=== PATIENT | female | born 1970 | race Caucasian/White ===

== ENCOUNTER 2018-08-11 07:02 | Inpatient (IN) ==
[2018-08-11] MEDS ORDERED: Metoprolol Tartrate 25 MG Tablet PO ONE (09:30)
[2018-08-11] MEDS ORDERED: Chlorhexidine Gluconate 2% 1 Pack (2 Cloths) TOPICAL ONE (09:30)
[2018-08-11] MEDS ORDERED: ceFAZolin 2 GM Premix Inj 2 GM/50 ML PIGGYBACK IV.SIG ONE (09:31)
[2018-08-11] MEDS ORDERED: ceFAZolin 2 GM Premix Inj 2 GM/50 ML PIGGYBACK IV.SIG SCH (10:00)
[2018-08-11] MEDS ORDERED: Sodium Chlor 0.9% Inj 500 ML IV.SIG SCH (10:00)
[2018-08-11] MEDS ORDERED: Bupivacaine/Epinephrine PF Inj 0.5% 30 ML Vial ONE (13:46)
[2018-08-11] MEDS ORDERED: Naloxone Inj 0.4 MG/ML Vial IV.PUSH PRN (13:50)
[2018-08-11] MEDS ORDERED: Post-op Orders (for Pharmacy) OTHER ONE (13:50)
--- NOTE | 2018-08-11 13:56 | P.OP ---
- Preoperative Diagnosis (1) GERD (gastroesophageal reflux disease) (2) Hiatal hernia - Postoperative Diagnosis (1) GERD (gastroesophageal reflux disease) (2) Hiatal hernia Date of procedure: 08/11/18 Procedure: Robot assisted hiatal hernia repair and 270 degree fundoplication Anesthesia: KWAME Surgeon: Ismael Grissom MD [place] Folder: Carmela JERNIGAN Estimated blood loss (mL): 30 Operation and Findings: Operative findings: Small hiatal hernia. 270 degree posterior fundoplication performed. Procedure in detail: The patient was taken to the operating room and placed in the supine position. General endotracheal anesthesia was induced and the abdomen was prepped and draped in usual sterile fashion. Surgical timeout was performed to verify correct patient procedure and site. Local anesthetic was injected in the skin and subcutaneous tissue superior to the umbilicus and a 5 mm [id number] mm incision made. Port was placed with the laparoscope in place. The abdomen was insufflated to 15 mmHg with CO2 gas which the patient tolerated well. She was placed in reverse Trendelenburg position. An 8 mm robotic trocar was placed in the right upper abdomen and the left midclavicular line. 5 mm port was placed in the left lateral abdomen in the right upper lateral abdomen. The initially placed port was changed to the 12 mm port. The debra flex liver retractor was placed through the right upper quadrant incision and the liver was retracted to expose the hiatus. At this point the da Susan robot was docked over the left shoulder. The pars flaccida of the gastrohepatic ligament was opened with the harmonic scalpel and the right chris identified. A small hiatal hernia was present. The medial plane between the right chris and the small hiatal hernia was developed. The left chris was identified and exposed. A [place] drain was placed through the retro-gastric window in the GE junction retracted caudad. The anterior peritoneum was divided. At this point, the entire hernia was reduced. It was a small hiatal hernia. The short gastric vessels of the superior one third of the stomach were divided to mobilize the fundus. The crura was closed with 2 [id number] 0 silk sutures. Next, a 270 degree posterior wrap was fashioned by bringing the greater curve of the fundus posterior to the GE junction. The fundus was wrapped 270 degrees posteriorly. On the right side, 2 -0 silk suture was used to secure the esophagus to the fundus to the diaphragm at 11:00. This was repeated on the left side at approximately 1:00. The stomach was then secured to the esophagus with simple interrupted 2-0 silk sutures for a distance of 3-4 cm. The posterior wrap was complete. Hemostasis was achieved. Liver retractor and trochars were removed and the fascia at the 12 mm site closed with 0 Vicryl suture. Skin was closed with subcuticular 4-0 Monocryl and Dermabond.
[2018-08-11] MEDS: Ketorolac Inj 30 MG/ML (IVP) Vial IV.PUSH SCH ×2 (14:55→20:54)
[2018-08-11] MEDS: Sod Chloride 0.9% Inj 1,000 ML IV.CONT SCH (15:03)
[2018-08-11] MEDS: Escitalopram 10 MG Tablet PO SCH (20:54)
[2018-08-12] MEDS: Ketorolac Inj 30 MG/ML (IVP) Vial IV.PUSH SCH ×2 (02:34→07:48)
[2018-08-12] MEDS: Sod Chloride 0.9% Inj 1,000 ML IV.CONT SCH ×2 (02:36→10:40)
[2018-08-12] MEDS: Escitalopram 10 MG Tablet PO SCH (08:31)
--- NOTE | 2018-08-12 10:07 | P.PNGS ---
Subjective Interval history: C/o soreness but overall doing ok. Tolearting liquids but did cough up a pill she swallowed. Physical Exam Vital signs: Vital Signs 08/11/18 11:06 08/11/18 14:13 08/11/18 14:14 Temperature 97.9 F Pulse Rate 96 H 98 H Respiratory Rate 16 Blood Pressure 149/85 H Pulse Oximetry 100 100 08/11/18 14:15 08/11/18 14:16 08/11/18 14:30 Temperature Pulse Rate 95 H 88 Respiratory Rate 18 13 Blood Pressure 148/82 H Pulse Oximetry 100 100 94 L 08/11/18 14:31 08/11/18 14:45 08/11/18 14:55 Temperature Pulse Rate 83 86 Respiratory Rate 12 15 Blood Pressure 155/92 H 155/92 H Pulse Oximetry 95 96 98 08/11/18 15:00 08/11/18 15:15 08/11/18 16:00 Temperature 97.7 F 97.5 F L Pulse Rate 85 82 75 Respiratory Rate 15 14 16 Blood Pressure 152/92 H 139/96 H 138/81 Pulse Oximetry 95 97 92 L 08/11/18 18:14 08/11/18 20:00 08/12/18 00:00 Temperature 97.9 F 98.1 F Pulse Rate 85 89 Respiratory Rate 18 18 18 Blood Pressure 152/81 H 129/72 Pulse Oximetry 98 94 L 08/12/18 04:00 08/12/18 08:00 Temperature 98.1 F 98.1 F Pulse Rate 84 81 Respiratory Rate 18 16 Blood Pressure 117/74 117/69 Pulse Oximetry 92 L 92 L Intake & Output 08/11/18 08/12/18 08/12/18 18:59 06:59 18:59 Intake Total 2450 / 2450 1240 / 1240 Output Total 430 / 430 Balance 2019 1240 / 1240 Weight 84.2 kg 86.1 kg Intake: IV 1150 / 1150 1000 / 1000 NS Inj 1,000 ML @ 100 mls/hr IV 1000 / 1000 .CONT .Q10H YARIEL Rx#:[id number] Ofirmev Inj 1,000 mg In 100 ml 100 / 100 @ 0 mls/hr IV.SIG .STK-MED ONE Rx#:[id number] LR 1000 mL Inj 1,000 ML @ 30 1000 / 1000 mls/hr IV.SIG .Q24H [facility], 1928–1983 Rx#: [id number] Ancef 2 GM Premix Inj 2 gm In 50 / 50 50 ml @ 0 mls/hr IV.SIG .STK- MED ONE Rx#:[id number] Oral 600 / 600 240 / 240 Anesthesia Amount 700 / 700 Output: Urine 400 / 400 Estimated Blood Loss 30 / 30 Other: # Voids 2 Date of Last Bowel Movement 08/10/18 08/10/18 Weight On Admission 84.2 kg Narrative: Abd: post op ttp, inc c/d/i Assessment and Plan - Assessment (1) GERD (gastroesophageal reflux disease) Code(s): K21.9 - Gastro-esophageal reflux disease without esophagitis Status: Acute (2) Hiatal hernia Code(s): K44.9 - Diaphragmatic hernia without obstruction or gangrene Status: Acute - Plan POD 1 s/p robot assisted hiatal hernia repair and partial fundoplication. D/c home. Stable. Full liquids. Rx toradol.. F/u on Aug 20. Activity- Ok to shower.
== END 2018-08-12 10:43 | disposition home or self-care (01) ==
LOC: HSDI 07:02 → N07 15:39
PROVIDERS: ADMIT Surgery; ATTEND Surgery